=== PATIENT | female | born 1995 | race Caucasian/White ===

== ENCOUNTER 2016-11-22 14:27 | Emergency (ER) | payer MEDICAID ==
[2016-11-22 14:28] VITALS: BMI 28.0
--- NOTE | 2016-11-22 16:17 | EDPRACDOC ---
- General Information Chief Complaint: Flu-Like Symptoms Stated Complaint: TROUBLE BREATHING WITH SHARP LT CHEST WALL Time Seen by Provider: 11/22/16 16:12 Information Source: Patient Home Medications: Home Medications Amoxicillin Trihydrate [Amoxicillin] 500 mg PO TID #21 tab 11/22/16 Ibuprofen Tablet [Motrin] 800 mg PO TID PRN #30 tab 11/22/16 Promethazine Dextromethorphan [Phenergan DM] 5 ml PO Q6 PRN #120 ml 11/22/16 Allergies/Adverse Reactions: Allergies Allergy/AdvReac Type Severity Reaction Status Date / Time Sulfa (Sulfonamide Allergy Hives* Verified 11/22/16 14:53 Antibiotics) - History of Present Illness Onset: couple days HPI: PT COMPLAINS OF COUGH PROD OF YELLOW-BROWN PHLEGM, CONGESTION, WHEEZING, 3 DAYS , USING OTC MEDS WITHOUT RELIEF, NO FEVER OR CHILL, NO N/V/D. 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 Denies: Depression Systemic History: Denies: Cancer Surgical History: Reports: Tonsillectomy/Adnoidectomy - Social Medical History Smoking Status: Heavy tobacco smoker (5 or more cigarettes/day or daily pipe/ cigar) EDM Review of Systems - Review of Systems Constitutional: negative: Chills, Fever Eyes: negative: Blurred Vision, Double Vision Ears: negative: Drainage Throat: Pain Nose: Congestion, Discharge Respiratory: Cough, Wheezing. negative: Shortness of Breath Cardiovascular: negative: Chest Pain Gastrointestinal: negative: Diarrhea, Nausea, Vomiting Genitourinary: negative: Dysuria, Frequency Neurological: Headache. negative: Dizziness, Numbness, Weakness Musculoskeletal: No Symptoms Reported Integumentary: No Symptoms Reported - Physical Exam Constitutional: Alert (Awake), No apparent distress Oriented to: Time, Person, Place Last recorded Vital Signs: Last Vital Signs Temp 98 F 11/22/16 14:50 Pulse 71 11/22/16 14:50 Resp 18 11/22/16 14:50 BP 107/56 L 11/22/16 14:50 Pulse Ox 97 11/22/16 14:50 Oxygen Pulse Oxygen Saturation 97 O2 Device Room Air Oxygen Flow Rate Fraction of Inspired Oxygen ( FIO2) - HEENT Head: Normal ( normocephalic) Eye Exam: Normal (PERRL, EOMI, Sclera white) Oropharynx: Tonsillar Hypertrophy Tympanic Membrane: Dull ENT EAC: Normal TMJ: Normal Nose: No Symptoms Reported (septum midline) Neck: Normal (FROM, trachea at midline) - Respiratory/Cardiovascular Respiratory: Wheezes (FEW, SCATTERED). negative: Accessory Muscle Use, Retractions Cardiovascular: Normal (RRR without murmur, gallop or rub) - Integumentary Skin: Normal, Warm, Dry Lymphatics: Normal (no adenopathy) - Neurologic Memory Impaired: Normal Motor Function: Normal (Normal tone, Pulses 2+ No cyanosis or edema, FROM) Cranial Nerve: Normal (CN II-X11 intact sensation, strength 5/5) Cerebellar: Normal Mood Description: Normal Perception: Normal - Differential Diagnosis Bronchitis, Pneumonia - Diagnostic Imaging CXR Image interpreted by: Radiologist CHEST 2 VIEW COMPARISON: 08/28/2016 FINDINGS: Heart size and mediastinal contours are normal. Both lungs are clear. No evidence of pleural effusion. Previously seen infiltrate within the lingula has go resolved since previous study. IMPRESSION: No active cardiopulmonary disease. Decision Time to Discharge: 16:24 - Departure Disposition: Home Condition: Stable Final Diagnosis: Acute bronchitis Instructions: Acute Bronchitis (ED) Education/Counseling Given To: Patient Education/Counseling Given Regarding: Diagnosis, Treatment, Prognosis, Follow Up Referrals: Diann Garcia MD [Primary Care Provider] - One Week Prescriptions: Amoxicillin Trihydrate [Amoxicillin] 500 mg PO TID #21 tab Ibuprofen Tablet [Motrin] 800 mg PO TID PRN #30 tab PRN Reason: Pain Promethazine Dextromethorphan [Phenergan DM] 5 ml PO Q6 PRN #120 ml PRN Reason: Cough Additional Instructions: Rest, drink plenty of fluids, use Tylenol every 4 hours and Motrin every 6 hours as needed for pain or fever, return to the ED for any worsening symptoms or concerns.
--- NOTE | 2016-11-22 16:19 | DIRPT ---
CLINICAL DATA: Cough and chest congestion. Recent pneumonia. EXAM: CHEST 2 VIEW COMPARISON: 08/28/2016 FINDINGS: Heart size and mediastinal contours are normal. Both lungs are clear. No evidence of pleural effusion. Previously seen infiltrate within the lingula has go resolved since previous study. IMPRESSION: No active cardiopulmonary disease. Electronically Signed By: Adelfo De La Fuente M.D. On: 11/22/2016 16:16
[2016-11-22 16:30] VITALS: BP 100/66; PULSE 64; TEMP 98.3
== END 2016-11-22 16:45 | disposition home or self-care (01) ==
LOC: EDMC 14:27
DX: J20.9 Acute bronchitis, unspecified (principal)
CPT/HCPCS: 71020; 99282